=== PATIENT | female | born 1945 | race Two or more races ===

== ENCOUNTER 2018-08-25 11:45 | Inpatient (IN) | payer OTHER ==
[~2018-08-25] VITALS: Ht 154.9 cm; Wt 77.6 kg
[2018-08-25] MEDS ORDERED: [UNRECOGNIZED DRUG - OTHER] (13:59)
[2018-08-25] MEDS ORDERED: METOPROLOL ER-1 EAC2 (14:00)
[2018-08-25] MEDS ORDERED: FENOFIBRATE160 MG PO (14:26)
[2018-08-25] MEDS ORDERED: NEURONTIN300 MG PO (14:27)
[2018-08-25] MEDS ORDERED: FOSAMAX70 MG PO (14:27)
[2018-08-25] MEDS ORDERED: ATACAND32 MG PO (14:27)
[2018-08-25] MEDS ORDERED: FIORICET PO (14:28)
[2018-08-25] MEDS ORDERED: ASA81 MG PO (14:28)
[2018-08-25] MEDS ORDERED: PRAVASTATIN SOD40 MG PO (14:28)
[2018-08-31] MEDS ORDERED: CODE1TAB37 PO (16:13)
[2018-08-31] MEDS ORDERED: XARELTO10 MG PO (16:13)
[2018-08-31] MEDS ORDERED: INTEGRA PLUS C1 EACH PO (16:13)
== END 2018-08-31 18:10 | DRG 470 ==
LOC: SURH 11:45 → O/R 08-29 06:00 → SURH 08-29 16:47
PROVIDERS: ADMIT Orthopaedic Surgery Sports Medicine
PROC: 0SRC0J9 Replacement of Right Knee Joint with Synthetic Substitute, Cemented, Open Approach (ICD-10-PCS; principal; 2018-08-29 15:15)
DX: M17.11 Unilateral primary osteoarthritis, right knee (principal); I10 Essential (primary) hypertension; E66.8 Other obesity

== ENCOUNTER 2024-05-09 08:00 | Inpatient (IN) | payer OTHER ==
[~2024-05-09] VITALS: Ht 154.9 cm; Wt 78.0 kg
[~2024-05-09 08:00] MED LIST: ASA81 MG PO; ATACAND32 MG PO; CODE1TAB37 PO; FENOFIBRATE160 MG PO; FIORICET PO; FOSAMAX70 MG PO; GLIPIZIDE XL2.5 MG; INTEGRA PLUS C1 EACH PO; METOPROLOL ER-1 EAC2; MIRALAX; NEURONTIN300 MG PO; PEPCID AC20 MG; POTASSIUM; PRAVASTATIN SOD40 MG PO; VITAMIN B125000 MCG; VITAMIN C1000 MG; VITAMIN D3; XARELTO10 MG PO; [UNRECOGNIZED DRUG - OTHER]
[2024-05-09 09:14] LABS: RH POSITIVE
[2024-05-15] MEDS ORDERED: MORPHINE SULFATE 4 MG/ML VIAL IV ONE ×2 (15:00→18:40)
[2024-05-15] MEDS ORDERED: CEFAZOLIN SODIUM 1,000 MG VIAL IV ONE (15:00)
[2024-05-15] MEDS ORDERED: KETOROLAC TROMETHAMINE 60 MG VIAL IM ONE (15:00)
[2024-05-15] MEDS ORDERED: VANCOMYCIN HCL 1,000 MG VIAL IR ONE (15:00)
[2024-05-15] MEDS ORDERED: TRANEXAMIC ACID 100MG/1ML (1000MG) AMPUL IV ONE ×2 (15:00)
[2024-05-15] MEDS ORDERED: GENTAMICIN SULFATE 40 MG/ML VIAL IV SCH (17:10)
[2024-05-15] MEDS ORDERED: SODIUM CHLORIDE 0.45 % 1,000 ML IV SCH (17:15)
[2024-05-15] MEDS ORDERED: ONDANSETRON HCL 2 MG/ML VIAL IV PRN (17:15)
[2024-05-15] MEDS ORDERED: CEFAZOLIN SODIUM 1,000 MG VIAL IV SCH (18:00)
[2024-05-15] MEDS ORDERED: THROMBIN,HU/FIBRINOGEN/CALCIUM 10 ML SYRINGE TOP ONE (19:00)
[2024-05-15] MEDS ORDERED: FAMOtidine 20 MG TABLET PO SCH (21:00)
[2024-05-15 21:39] LABS: HEMATOCRIT 34.4 % (36.0-45.00); HEMOGLOBIN 10.9 g/dL (12.0-15.00); RED BLOOD COUNT 3.94 M/uL (4.00-6.00)
[2024-05-15 22:35] VITALS: BP 115/74; O2SAT 96
[2024-05-16] VITALS: BP 105/65; O2SAT 97
[2024-05-16] MEDS ORDERED: TRAMADOL HCL 50 MG TABLET PO SCH (01:00)
[2024-05-16 06:27] LABS: HEMATOCRIT 30.3 % (36.0-45.00); MEAN CELL VOLUME 85.8 fL (80.00-100.00); MEAN CORPUSCULAR HEMOGLOBIN 28.4 pg (27.00-32.0); MEAN CORPUSCULAR HGB CONC 33.1 g/dl (32.0-36.0); PLATELET COUNT 258 K/uL (150-450); RED BLOOD COUNT 3.53 M/uL (4.00-6.00); RED CELL DISTRIBUTION WIDTH 15.6 % (11.5-14.5)
[2024-05-16 08:00] VITALS: BP 120/62; O2SAT 94
[2024-05-16] MEDS ORDERED: Septra Ds Tablet PO (08:00)
[2024-05-16] MEDS ORDERED: TRAMADOL HCL50 MG PO (08:01)
[2024-05-16] MEDS ORDERED: INTEGRA PLUS C1 EACH PO (08:01)
[2024-05-16] MEDS ORDERED: SENNA/DOCUSATE SODIUM 1 TAB TABLET PO SCH (09:00)
[2024-05-16] MEDS ORDERED: BACITRACIN 28.35 GM OINT.TUBE TOP SCH (09:00)
[2024-05-16] MEDS ORDERED: IRON FUM,PS/FOLIC/BCOMP,C NO.9 1 CAP CAPSULE PO SCH (09:00)
[2024-05-16] MEDS ORDERED: CELECOXIB 200 MG CAPSULE PO SCH (09:00)
[2024-05-16] MEDS ORDERED: CANDESARTAN CILEXETIL 32 MG TABLET PO SCH (09:00)
[2024-05-16] MEDS ORDERED: RIVAROXABAN 10 MG TAB PO SCH (09:00)
[2024-05-16] MEDS ORDERED: HYDROCHLOROTHIAZIDE 12.5 MG CAPSULE PO SCH (09:00)
[2024-05-16] MEDS ORDERED: METOPROLOL SUCCINATE 50 MG TAB.SR.24H PO SCH (09:00)
[2024-05-16] MEDS ORDERED: SULFAMETHOXAZOLE/TRIMETHOPRIM DS 1 TAB PO SCH (09:00)
== END 2024-05-16 12:40 | disposition home or self-care (01) | DRG 483 ==
LOC: O/R 05-15 05:40 → SURH 05-15 08:00 → SURG 05-15 14:38
PROVIDERS: ADMIT Orthopaedic Surgery Sports Medicine; ATTEND Orthopaedic Surgery Sports Medicine
PROC: 0LN10ZZ Release Right Shoulder Tendon, Open Approach (ICD-10-PCS; 2024-05-15)
PROC: 0PUC0JZ Supplement Right Humeral Head with Synthetic Substitute, Open Approach (ICD-10-PCS; 2024-05-15)
PROC: 0RRJ00Z Replacement of Right Shoulder Joint with Reverse Ball and Socket Synthetic Substitute, Open Approach (ICD-10-PCS; principal; 2024-05-15 13:00)
DX: M19.011 Primary osteoarthritis, right shoulder (principal); M75.121 Complete rotator cuff tear or rupture of right shoulder, not specified as traumatic; M75.21 Bicipital tendinitis, right shoulder; Z20.822 Contact with and (suspected) exposure to COVID-19